=== PATIENT | female | born 1985 | race Caucasian/White ===

== ENCOUNTER 2018-06-11 20:59 | Emergency (ER) | payer OTHER, MEDICAID ==
[~2018-06-11] VITALS: Ht 162.6 cm; Wt 81.7 kg
[~2018-06-11 20:59] MED LIST: ACETAMINOPHEN-1 EAC1 PO; CEPHALEXIN 500500 M3 PO; CLOBETASOL PROP60 G1 TP; HYDROCODONE-AP1 EAC6 PO; IBUPROFEN 800800 M1 PO; NOHOMEMEDICATIONS; NORCO 5-325 TA1 EACH PO; PSORIASIS MED; VICODIN ES 7.51 EACH PO; XANAX 1 MG TABLE1 MG PO; XANAX XR1 MG PO
[2018-06-11] MEDS ORDERED: BUTALB-APAP-CA1 EACH PO (23:17)
[2018-06-11] MEDS ORDERED: NABUMETONE 750750 M1 PO (23:17)
[2018-06-12] VITALS: BP 125/77
== END 2018-06-12 | disposition home or self-care (01) ==
LOC: M.ERS 20:59
DX: S06.0X0A Concussion without loss of consciousness, initial encounter (principal); G93.0 Cerebral cysts; F41.9 Anxiety disorder, unspecified; L40.9 Psoriasis, unspecified; F17.210 Nicotine dependence, cigarettes, uncomplicated; V89.2XXA Person injured in unspecified motor-vehicle accident, traffic, initial encounter; Y93.89 Activity, other specified; Y92.89 Other specified places as the place of occurrence of the external cause; Y99.8 Other external cause status